=== PATIENT | female | born 1930 | race Caucasian/White ===

== ENCOUNTER → 2016-12-05 | Outpatient (CLI) | payer MEDICARE, BC ==
[2016-12-05 14:52] LABS: Blood Urea Nitrogen 20 mg/dL (7-17); Non-African American GFR(MDRD) 53 (>60 ml/min/1.73 sqM)
== END | disposition home or self-care (01) ==
LOC: LABWHC1 13:52
PROVIDERS: ATTEND Radiology Radiation Oncology
DX: D33.3 Benign neoplasm of cranial nerves (principal)
CPT/HCPCS: 36415; 82565; 84520

== ENCOUNTER → 2017-06-04 | Outpatient (CLI) | payer MEDICARE, BC ==
--- NOTE | 2017-06-04 16:07 | BD ---
EXAMINATION TYPE: MG DEXA axial skeleton. DATE OF EXAM: 06/04/2017 COMPARISON: NONE CLINICAL HISTORY: Osteoporosis screening. Postmenopausal female. Height: 5 FT 2 1/2 IN Weight: 142 FRAX RISK QUESTIONS: Alcohol (3 or more units per day): NO Family History (Parent hip fracture): NO Glucocorticoids (More than 3mos): NO (Ex: prednisone, prednisolone, methylprednisolone, dexamethasone, and hydrocortisone). History of Fracture in Adulthood: YES Secondary Osteoporosis: 1. Type 1 Diabetes: NO 2. Hyperthyroidism: NO 3. Menopause before 45: NO 4. Malnutrition: NO 5. Chronic liver disease: NO Rheumatoid Arthritis: NO Current Tobacco Use: NO RISK FACTORS HISTORY OF: History of Wrist Fracture: YES When: IN EARLY 'S Surgery to Spine/Hip(right/left)/Wrist (right/left): LUMBAR SURG When: 2003 Active: YES Postmenopausal woman: PART HYST LATE S Lost more than 2 inches in height since high school: YES MEDICATIONS: Thyroid Medications: YES Which medication: SYNTHROID How Long: OVER 40 YEARS Osteoporosis Medications: Which medication: How Long: Additional Medications: SYNTHROID, ZOCOR, GABAPENTIN, TOPROL, CALCIUM Additional History: LUMBAR SURG RODS AND SCREWS 2003 EXAM MEASUREMENTS: Bone mineral density about the R hip (g/cm2): 0.722 Bone mineral density about the L hip (g/cm2): 0.687 T Score values are as follows: -----R Neck: -2.3 -----L Neck: -2.5 -----R Total: -2.4 -----L Total: -2.7 Bone mineral density has: DECREASED -5.5 % since study of: 2016 IMPRESSION: Osteoporosis (T Score less than -2.5). There is increased fracture risk and therapy is usually indicated based on age. Re-Screen 1-2 years. NOTE: T-SCORE=SD OF THE YOUNG ADULT MEAN.
--- NOTE | 2017-06-06 10:54 | MM ---
Reason for exam: screening (asymptomatic). Last mammogram was performed 1 year and 6 months ago. History: Patient is postmenopausal. Family history of premenopausal breast cancer in paternal grandmother at age 45. Physical Findings: A clinical breast exam by your physician is recommended on an annual basis and results should be correlated with mammographic findings. MG 3D Screening Mammo W/Cad Bilateral CC and MLO view(s) were taken. Prior study comparison: November 27, 2015, bilateral MG 3d screening mammo w/cad. October 28, 2013, bilateral MG screening mammo w CAD. The breast tissue is heterogeneously dense. This may lower the sensitivity of mammography. No suspicious abnormality. No significant changes when compared with prior studies. ASSESSMENT: Negative, BI-RAD 1 RECOMMENDATION: Routine screening mammogram of both breasts in 1 year.
== END | disposition home or self-care (01) ==
LOC: RADMAMWWP 13:36
PROVIDERS: ATTEND Internal Medicine Geriatric Medicine
DX: Z12.31 Encounter for screening mammogram for malignant neoplasm of breast (principal); M81.0 Age-related osteoporosis without current pathological fracture
CPT/HCPCS: 77063; 77067; 77080

== ENCOUNTER → 2018-07-22 | Outpatient (CLI) | payer MEDICARE, BC | END | disposition home or self-care (01) | LOC: LABWHC1 15:24 | PROVIDERS: ATTEND Radiology Radiation Oncology | DX: D33.3 Benign neoplasm of cranial nerves (principal) | CPT/HCPCS: 36415; 82565; 84520 ==

== ENCOUNTER → 2018-07-23 | Outpatient (CLI) | payer MEDICARE, BC ==
--- NOTE | 2018-07-24 12:00 | MM ---
Reason for exam: screening (asymptomatic). Last mammogram was performed 1 year and 2 months ago. History: Patient is postmenopausal. Family history of premenopausal breast cancer in paternal grandmother at age 45. Physical Findings: A clinical breast exam by your physician is recommended on an annual basis and results should be correlated with mammographic findings. MG 3D Screening Mammo W/Cad Bilateral CC and MLO view(s) were taken. Prior study comparison: June 04, 2017, bilateral MG 3d screening mammo w/cad. November 27, 2015, bilateral MG 3d screening mammo w/cad. The breast tissue is heterogeneously dense. This may lower the sensitivity of mammography. Stable benign calcifications left breast. There is no discrete abnormality. No significant changes when compared with prior studies. ASSESSMENT: Benign, BI-RAD 2 RECOMMENDATION: Routine screening mammogram of both breasts in 1 year.
== END | disposition home or self-care (01) ==
LOC: RADMAMWWP 13:04
PROVIDERS: ATTEND Internal Medicine Geriatric Medicine
DX: Z12.31 Encounter for screening mammogram for malignant neoplasm of breast (principal)
CPT/HCPCS: 77063; 77067

== ENCOUNTER → 2019-05-21 | Outpatient (CLI) | payer MEDICARE, BC ==
--- NOTE | 2019-05-21 12:55 | US ---
EXAMINATION TYPE: US carotid duplex BILAT DATE OF EXAM: 05/21/2019 COMPARISON: NONE CLINICAL HISTORY: I65.23 occulsion and stenosis of bilateral carotid. Syncope EXAM MEASUREMENTS: RIGHT: Peak Systolic Velocity (PSV) cm/sec ----- Right CCA: 68.3 ----- Right ICA: 108 ----- Right ECA: 98.2 ICA/CCA ratio: 1.58 RIGHT: End Diastole cm/sec ----- Right CCA: 15.5 ----- Right ICA: 39.8 ----- Right ECA: 13.0 LEFT: Peak Systolic Velocity (PSV) cm/sec ----- Left CCA: 80.1 ----- Left ICA: 89.5 ----- Left ECA: 77.7 ICA/CCA ratio: 1.12 LEFT: End Diastole cm/sec ----- Left CCA: 16.2 ----- Left ICA: 37.3 ----- Left ECA: 13.0 VERTEBRALS (direction of flow): Right Vertebral: Antegrade Left Vertebral: Antegrade Rhythm: Normal Mild plaque bilateral bifurcations. No evidence of increased velocities. No evidence of significant s tenosis IMPRESSION: 1. Mild atherosclerotic plaque with no significant hemodynamic stenosis. Criteria for Assigning % of Stenosis / Diameter reduction (Estimation based on the indirect measurements of the internal carotid artery velocities (ICA PSV). 1. Normal (no stenosis)=ICA PSV < 125 cm/s: ratio < 2.0: ICA EDV<40 cm/s. 2. Less than 50% stenosis=ICA PSV < 125 cm/s: ratio < 2.0: ICA EDV<40 cm/s. 3. 50 to 69% stenosis=ICA PSV of 125 to 230 cm/s: ration 2.0 ? 4.0: ICA EDV 40-100 cm/s. 4. Greater than 70% stenosis to near occlusion= ICA PSV > 230 cm/s: ratio > 4.0: ICA EDV > 100 cm/s. 5. Near occlusion= ICA PSV velocities may be low or undetectable: variable ratio and ICA EDV. 6. Total occlusion=unable to detect flow.
--- NOTE | 2019-05-22 08:01 | ECHOF ---
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 This was a technically adequate study. The left ventricular size is normal. There is mild concentric left ventricular hypertrophy. Overa ll left ventricular systolic function is normal with, an EF between 60 - 65 %. The right ventricle is normal in size. Normal LA size by volume 22+/-6 ml/m2. The right atrium is normal in size. Aneurysmal Interatrial septum. The aortic valve is trileaflet and appears structurally normal. There is trace mitral regurgitation. Mild tricuspid regurgitation present. Right ventricular systolic pressure is normal at < 35 mmHg. Trace/mild (physiologic) pulmonic regurgitation. The aortic root size is normal. Normal inferior vena cava with normal inspiratory collapse consistent with estimated right atrial pre ssure of 5 mmHg. There is no pericardial effusion. CONCLUSIONS -------- 1. Sinus rhythm. 2. This was a technically adequate study. 3. The left ventricular size is normal. 4. There is mild concentric left ventricular hypertrophy. 5. Overall left ventricular systolic function is normal with, an EF between 60 - 65 %. 6. The right ventricle is normal in size. 7. Normal LA size by volume 22+/-6 ml/m2. 8. The right atrium is normal in size. 9. Aneurysmal Interatrial septum. 10. The aortic valve is trileaflet and appears structurally normal. 11. There is trace mitral regurgitation. 12. Mild tricuspid regurgitation present. 13. Right ventricular systolic pressure is normal at < 35 mmHg. 14. Trace/mild (physiologic) pulmonic regurgitation. 15. The aortic root size is normal. 16. Normal inferior vena cava with normal inspiratory collapse consistent with estimated right atrial pressure of 5 mmHg. 17. There is no pericardial effusion. LINEMAN APPRENTICE: Kena Barber RDCS
== END | disposition home or self-care (01) ==
LOC: RADECHMAIN 11:39
PROVIDERS: ATTEND Internal Medicine Geriatric Medicine
DX: I08.8 Other rheumatic multiple valve diseases (principal); I65.29 Occlusion and stenosis of unspecified carotid artery
CPT/HCPCS: 93306; 93880

== ENCOUNTER → 2019-10-18 | Outpatient (CLI) | payer MEDICARE, BC ==
--- NOTE | 2019-10-25 10:26 | MM ---
Reason for exam: screening (asymptomatic). Last mammogram was performed 1 year and 3 months ago. History: Patient is postmenopausal. Family history of premenopausal breast cancer in paternal grandmother at age 45. Physical Findings: A clinical breast exam by your physician is recommended on an annual basis and results should be correlated with mammographic findings. MG 3D Screening Mammo W/Cad Bilateral CC and MLO view(s) were taken. Prior study comparison: July 23, 2018, bilateral MG 3d screening mammo w/cad. June 04, 2017, bilateral MG 3d screening mammo w/cad. The breast tissue is heterogeneously dense. This may lower the sensitivity of mammography. No significant changes when compared with prior studies. ASSESSMENT: Benign, BI-RAD 2 RECOMMENDATION: Routine screening mammogram of both breasts in 1 year.
== END | disposition home or self-care (01) ==
LOC: RADMAMWWP 13:03
PROVIDERS: ATTEND Internal Medicine Geriatric Medicine
DX: Z12.31 Encounter for screening mammogram for malignant neoplasm of breast (principal)
CPT/HCPCS: 77063; 77067

== ENCOUNTER → 2020-03-02 | Outpatient (CLI) | payer MEDICARE, BC ==
--- NOTE | 2020-03-03 03:20 | MR ---
EXAMINATION TYPE: MR brain and iac wo/w con DATE OF EXAM: 03/02/2020 COMPARISON: 02/04/2013 HISTORY: Rt hearing loss, neoplasm CONTRAST: Standard multiplanar, multisequence MRI departmental protocol utilizing 7 mL intravenous Gadavist valerie olinium contrast. There is mild cerebral atrophy. There is no mass effect nor midline shift. There is no sign of intrac ranial hemorrhage. Diffusion images show no evidence of an acute infarct. Corpus callosum is intact. There is 8mm rounded focus of decreased signal on the FLAIR images in the brainstem on the right side at the level of the right cerebellar peduncle. This has normal signal pattern on the T2 images. Ther e is no enhancement on the contrast images. This is likely artifactual. There is 8mm mass in the posterior fossa on the right side at the internal auditory canal on the T2 images. The contrast images show dense enhancement of this mass that overall measures 12 x 8 mm. I s ee no pathologic enhancement involving the cerebral hemispheres. Cerebellum is intact. There is autumn l enhancement of the venous sinuses. There are scattered small high signal foci in the aguirre-white matter junction of both cerebral hemisph eres on the FLAIR images that measure mostly less than 3 mm. The total number is less than 10. 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 This appears new compared to old exam. Mild cerebral atrophy appropriate for age.
== END | disposition home or self-care (01) ==
LOC: RADMRIMAIN 15:33
PROVIDERS: ATTEND Radiology Radiation Oncology
DX: G31.1 Senile degeneration of brain, not elsewhere classified (principal); G93.89 Other specified disorders of brain; D33.3 Benign neoplasm of cranial nerves
CPT/HCPCS: 70553; A9585